=== PATIENT | female | born 1965 | race African-American/Black ===

== ENCOUNTER 2025-01-02 09:18 | Inpatient (IN) | payer MEDICARE, MEDICAID ==
[~2025-01-02] VITALS: Ht 160 cm; Wt 79.2 kg
--- NOTE | 2025-01-02 10:27 | ED.PDOC ---
History of Present Illness(SKN HPI Comments 59 y/o F, presents to the ED for CC of abscess. Patient states, she was bitten by a spider on 12/24/24 and has since, had a non-healing wound to her left inner thigh. Upon examination, patient has a 1cm round wound to her left inner thigh with localized erythema and purulent drainage. Patient denies fever, chills, sweats, nausea, or vomiting. No other symptoms or modifying factors are present at this time. Chief Complaint: Abscess Time Seen by MD: 09:45 History of Present Illness: Nurses Notes, Medications, Allergies Allergies: Coded Allergies: NO KNOWN ALLERGIES (Unverified , 01/02/25) Information Source: Patient Mode of Arrival: Ambulatory Severity: Moderate Timing: Days Duration: Since onset Prehospital treatment: None Location: Other (left thigh) Mechanism: Spider Developed: Generalized erythema Object: None Condition of Object: None Retained Foreign Body: No Immunization Status of Animal: NA Tetanus: Unknown History of: None Associated Signs and Symptoms: Redness, Swelling, Pus Constitutional: denies: chills, diaphoresis, fatigue, fever, malaise, sweats, weakness, others EENTM: denies: blurred vision, double vision, ear bleeding, ear discharge, ear drainage, ear pain, ear ringing, eye pain, eye redness, hearing loss, mouth pain, mouth swelling, nasal discharge, nose bleeding, nose congestion, nose pain, photophobia, tearing, throat pain, throat swelling, voice changes, others Respiratory: denies: cough, hemoptysis, orthopnea, SOB at rest, shortness of breath, SOB with excertion, stridor, wheezing, others Cardiovascular: denies: chest pain, dizzy spells, diaphoresis, Dyspnea on exertion, edema, irregular heart beat, left arm pain, lightheadedness, palpitati ons, PND, syncope, others Gastrointestinal: denies: abdomen distended, abdominal pain, blood streaked bowels, constipated, diarrhea, dysphagia, difficulty swallowing, hematemesis, melena, nausea, poor appetite, poor fluid intake, rectal bleeding, rectal pain, vomiting, others Genitourinary: denies: abnormal vagina bleeding, burning, dyspareunia, dysuria, flank pain, frequency, hematuria, incontinence, pain, , vagina discharge, urgency, others Neurological: denies: dizziness, fainting, headache, left sided numbness, left sided weakness, numbness, paresthesia, pre-existing deficit, right sided numbness, right sided weakness, seizure, speech problems, tingling, tremors, weakness, others Musculoskeletal: denies: back pain, gout, joint pain, joint swelling, muscle pain, muscle stiffness, neck pain, others Integumetry: denies: bruises, change in color, change in hair/nails, dryness, laceration, lesions, lumps, rash, wounds, others Allergic/Immunocompromised: denies: Difficulty Healing, Frequent Infections, Hives, Itching, others Hematologic/Lymphatic: denies: anemia, blood clots, easy bleeding, easy bruisin g, swollen glands, others Physical Exam General Appearance: Moderate Distress HEENT: Normal ENT Inspection, Pharynx Normal, TMs Normal Neck: Full Range of Motion, Non-Tender, Normal, Normal Inspection Respiratory: Chest Non-Tender, Lungs Clear, No Accessory Muscle Use, No Respiratory Distress, Normal Breath Sounds Cardiovascular: No Edema, No JVD, No Murmur, No Gallop, Normal Peripheral Pulses, Regular Rate/Rhythm Breast Exam: Deferred Gastrointestinal: No Organomegaly, Non Tender, No Pulsatile Mass, Normal Bowel Sounds, Soft Genitalia: Deferred Pelvic: Deferred Rectal: Deferred Extremities: No calf tenderness, Normal capillary refill, Normal range of motion, Non-tender, No pedal edema, Swelling (Left thigh) Musculoskeletal : Apperance: Normal Neurologic: Alert, chief architect II-XII nml as Tested, No Motor Deficits, Normal Affect, Normal Mood, No Sensory Deficits Cerebellar Function: NOT DONE Reflexes: NOT DONE Skin: Dry, Normal Color, Warm, Wounds (Redness of left thigh with swelling) Peripheral Pulses: 3+ Radial (R), 3+ Radial (L) Lymphatic: No Adenopathy Was a procedure done? Was a procedure done?: No Differential Diagnosis (INTG) Differential Diagnosis: Cellulitis Differential Diagnosis: Abscess X-Ray, Labs, Meds, VS Vital Signs Date Time Temp Pulse Resp B/P (MAP) Pulse Ox O2 Delivery O2 Flow Rate FiO2 01/02/25 09:57 98.6 73 15 143/87 (105) 98 98.6 01/02/25 09:19 98.8 83 15 145/83 99 98.8 Patient alert pain Has swelling of the left thigh with drainage of the wound. Vitals stable. Answering questions. On examination there is redness around the left upper thigh. Reviewed her previous visit. Was given Zosyn. Was given clindamycin. Explained in the patient. Continue monitoring. Time of 1ST Reevaluation: 10:15 Reevaluation 1ST: Unchanged Patient Education/Counseling: Diagnosis, Treatment Family Education/Counseling: No Family Present SEPSIS Sepsis Screen Date sepsis recognized/suspect: Jan 02, 2025 Time Sepsis recognized/suspect: 920 Recent Procedure: No On Antibiotic Therapy: No Respiratory Rate >20: No Heart Rate >90: No Temp<36 C (96.8 F) or >38.3 C: No SBP <90 or MAP <65 mmHG: No New Acute Mental Status Change: No Is the patient on CPAP, BIPAP,: No Physician Orders Troponin-I Hs (01/02/25 10:31) Complete Blood Count (01/02/25 10:31) Comprehensive Metabolic Panel (01/02/25 10:31) Urinalysis (01/02/25 10:31) Sodium Chloride 0.9% (01/02/25 10:45) Sodium Chloride 0.9% (01/02/25 10:45) Piperacillin-Tazob 3.375gm (Zosyn 3.375g (01/02/25 10:45) Clindamycin 300mg Iv (Cleocin Iv) (01/02/25 10:45) Vital Signs Date Time Temp Pulse Resp B/P (MAP) Pulse Ox O2 Delivery O2 Flow Rate FiO2 01/02/25 09:57 98.6 73 15 143/87 (105) 98 98.6 01/02/25 09:19 98.8 83 15 145/83 99 98.8 Departure 1 Departure Time of Disposition: 11:04 Impression: Primary Impression: Cellulitis Qualified Codes: L03.116 - Cellulitis of left lower limb Disposition: ADMITTED INPATIENT Admit to: Med Surg Condition: Guarded Additional Instructions: Discharge Note: Continue on your medications. Do not drive when taking narcotics. Drink plenty of fluids. Follow up with your primary Dr. Take your prescriptions as ordered. If your condition becomes worse call and follow up with your primary Dr. for instructions or return to the ER if needed. Have the stitches/radha removed in 7-10 days. Keep wound clean and dry. Have a wound check in 2 days. Thank you for visiting [facility]. Critical Care Note Critical Care Time?: No Stability Stability form required: No Heart Score Heart Score: Heart Score Response (Comments) Value History N/A 0 EKG N/A 0 Age N/A 0 Risk Factors N/A 0 Troponin N/A 0 Total 0 I personally scribed for KO KENNEDY MD ([email or web address]) on 01/02/25 at 10:27. Electronically submitted by Sheryl Costello ([employer]). I personally scribed for KO KENNEDY MD ([email or web address]) on 01/02/25 at 10:48. Electronically submitted by Sheryl Costello ([employer]). I personally scribed for KO KENNEDY MD ([email or web address]) on 01/02/25 at 10:50. Electronically submitted by Sheryl Costello ([email or web address]). KO KENNEDY MD Jan 02, 2025 10:27
[2025-01-02 11:41] LABS: Hematocrit 37.7 % (36.0-46.0); Hemoglobin 12.8 g/dL (12.2-16.2); Mean Corpuscular Hemoglobin 31.7 pg (28.0-32.0); Mean Corpuscular Volume 93.5 fL (80.0-100.0); Nucleated Red Blood Cells % 0.1 %
[2025-01-02 11:52] LABS: Alanine Aminotransferase 19 U/L (7-40); Albumin 4.0 g/dL (3.2-4.8); Alkaline Phosphatase 87 U/L (46-116); Anion Gap 4 (5-15); BUN/Creatinine Ratio 16.2 (10.0-20.0); Blood Urea Nitrogen 11 mg/dL (9-23); Calcium 9.4 mg/dL (8.7-10.4); Carbon Dioxide 29 mmol/L (20-31); Potassium 4.1 mmol/L (3.5-5.1); Sodium 141 mmol/L (136-145); Total Protein 6.4 g/dL (5.7-8.2)
[2025-01-02 11:56] LABS: Bilirubin, Total 0.2 mg/dL (0.2-1.0); Chloride 108 mmol/L (98-107); Glucose 139 mg/dL (74-106)
[2025-01-02] MEDS: SODIUM CHLORIDE 0.9% 1,000 ML IV ONE ×2 (12:05→12:36)
[2025-01-02] MEDS: CLINDAMYCIN 300MG IV 50 ML IV ONE (12:06)
[2025-01-02] MEDS: PIPERACILLIN-TAZOB 3.375GM 100 ML IV ONE (12:06)
[2025-01-02] MEDS ORDERED: GABA-339 PO (12:57)
[2025-01-02] MEDS ORDERED: ACETAMINOPHEN 325 MG TAB PO PRN (13:00)
[2025-01-02] MEDS: SODIUM CHLORIDE 0.9% 1,000 ML IV SCH (13:00)
[2025-01-02] MEDS ORDERED: ONDANSETRON HCL 4 MG/2 ML VIAL IV PRN (13:00)
--- NOTE | 2025-01-02 13:08 | DVHHP2 ---
History of Present Illness Reason for Visit: Spider bite History of Present Illness 59-year-old female with a past medical history of chronic pain syndrome and tobacco use presents to the emergency department with concerns of a nonhealing abscess on the left inner thigh, which has attributes to a spider bite. The patient states the symptoms began on 12/24/2024 after a presumed spider bite. She reports that she was hospitalized at [facility] from 12/27/24 - 12/30/24, during which she received inpatient treatment and was discharged on oral antibiotics. Despite this, she states the wound has continued to drain purulent material. On exam, the wound is open and I am really 1 cm in size, which ongoing purulent lisa inage. She denies fever, chills, or systemic symptoms. Past Medical History As stated in HPI Past Surgical History x 5 Family History Reviewed, non-contributory to the management of this case. Past Social History Admits to tobacco use Denies illicit or ETOH abuse Review of Systems Constitutional: Yes: Malaise; No: Fever, Chills, Sweats, Weakness, Other Eyes: No: Pain, Vision change, Conjunctivae inflammation, Eyelid inflammation, Other, Redness ENT: No: Ear pain, Ear discharge, Nose pain, Nose discharge, Nose congestion, Mouth pain, Mouth swelling, Throat pain, Throat swelling, Other Respiratory: No: Cough, Dry, Shortness of breath, SOB with excertion, Wheezing, Hemoptysis, Pleuritic Pain, Sputum, Wheezing, Other Cardiovascular: No: Chest Pain, Palpitations, Orthopnea, Paroxysmal Noc. Dyspnea, Edema, Lt Headedness, Other Gastrointestinal: No: Nausea, Vomiting, Abdominal Pain, Diarrhea, Constipation, Melena, Hematochezia, Other Genitourinary: No Dysuria, No Frequency, No Incontinence, No Hematuria, No Retention, No Other Musculoskeletal: No: other, neck pain, shoulder pain, arm pain, back pain, hand pain, leg pain, foot pain Skin: Other (Left inner thigh open wound) Neurological: No: Weakness, Numbness, Incoordination, Change in speech, Confusion, Seizures, Other Allergies: Coded Allergies: NO KNOWN ALLERGIES (Unverified , 01/02/25) Exam Vital Signs Vital Signs Date Time Temp Pulse Resp B/P (MAP) Pulse Ox O2 Delivery O2 Flow Rate FiO2 01/02/25 12:19 Room Air* 0 21 01/02/25 09:57 98.6 73 15 143/87 (105) 98 98.6 General Appearance: Alert, Oriented X3, Cooperative, mild distress HEENT: Atraumatic, PERRLA, EOMI Respiratory: Clear to auscultation, Normal air movement Cardiovascular: Normal S1, Normal S2 Abdominal: Normal bowel sounds, Soft, No tenderness Extremities: Other (Left inner thigh open wound approximately 1 cm in diameter with purulent drainage. Surrounding erythema is minimal. No fluctuance or tracking noted.) Neuro: Normal speech Labs/Xrays Labs Test 01/02/25 11:01 Range/Units White Blood Count 9.5 4.4-10.8 10^3/uL Red Blood Count 4.04 4.0-5.20 10^6/uL Hemoglobin 12.8 12.2-16.2 g/dL Hematocrit 37.7 36.0-46.0 % Mean Corpuscular Volume 93.5 80.0-100.0 fL Mean Corpuscular Hemoglobin 31.7 28.0-32.0 pg Mean Corpuscular Hemoglobin Concent 33.9 32.0-36.0 g/dL Red Cell Distribution Width 14.9 H 11.8-14.3 % Platelet Count 364 140-450 10^3/uL Mean Platelet Volume 7.5 6.9-10.8 fL Neutrophils (%) (Auto) 73.3 37.0-80.0 % Lymphocytes (%) (Auto) 16.3 10.0-50.0 % Monocytes (%) (Auto) 8.0 0.0-12.0 % Eosinophils (%) (Auto) 1.9 0.0-7.0 % Basophils (%) (Auto) 0.5 0.0-2.0 % Neutrophils # (Auto) 6.9 1.6-8.6 10 ^3/uL Lymphocytes # (Auto) 1.5 0.4-5.4 10 ^3/uL Monocytes # (Auto) 0.8 0-1.3 10 ^3/uL Eosinophils # (Auto) 0.2 0-0.8 10 ^3/uL Basophils # (Auto) 0.1 0-0.2 10 ^3/uL Nucleated Red Blood Cells 0.1 % Sodium Level 141 136-145 mmol/L Potassium Level 4.1 3.5-5.1 mmol/L Chloride Level 108 H 98-107 mmol/L Carbon Dioxide Level 29 20-31 mmol/L Anion Gap 4 L 5-15 Blood Urea Nitrogen 11 9-23 mg/dL Creatinine 0.68 0.550-1.02 mg/dL Glomerular Filtration Rate Calc 100 >90 mL/min BUN/Creatinine Ratio 16.2 10.0-20.0 Serum Glucose 139 H 74-106 mg/dL Calcium Level 9.4 8.7-10.4 mg/dL Total Bilirubin 0.2 0.2-1.0 mg/dL Aspartate Amino Transferase (AST) 19 13-40 U/L Alanine Aminotransferase (ALT) 19 7-40 U/L Alkaline Phosphatase 87 46-116 U/L Troponin I High Sensitivity < 3 L </=34 ng/L Total Protein 6.4 5.7-8.2 g/dL Albumin 4.0 3.2-4.8 g/dL SEPSIS Sepsis Screen Date sepsis recognized/suspect: Jan 02, 2025 Time Sepsis recognized/suspect: 920 Recent Procedure: No On Antibiotic Therapy: No Respiratory Rate >20: No Heart Rate >90: No Temp<36 C (96.8 F) or >38.3 C: No SBP <90 or MAP <65 mmHG: No New Acute Mental Status Change: No Is the patient on CPAP, BIPAP,: No Physician Orders Urinalysis (01/02/25 10:31) Sodium Chloride 0.9% (01/02/25 10:45) Clindamycin Ivpb Cleocin (01/02/25 14:00) Zosyn Extended Infusion (01/02/25 18:00) Admit (01/02/25 12:53) Code Status (01/02/25 12:53) 0.9% Ns 1000 Ml (01/02/25 13:00) Hydrocodone-Acet 5/325mg Tab (Lomira 5/32 (01/02/25 13:00) Ondansetron Hcl (Zofran) (01/02/25 13:00) Enoxaparin Sodium (Lovenox) (01/03/25 10:00) Fall Risk Precautions In Place QSHIFT (01/02/25 12:53) Complete Blood Count (01/03/25 04:00) Comprehensive Metabolic Panel (01/03/25 04:00) Cardiac Diet-2gna,Lofat,Lochol (01/02/25 Lunch) Condition: Fair (01/02/25 12:53) Acetaminophen Tablet (Tylenol Tablet) (01/02/25 13:00) Morphine Sulfate Injection (01/02/25 13:00) Vital Signs Date Time Temp Pulse Resp B/P (MAP) Pulse Ox O2 Delivery O2 Flow Rate FiO2 01/02/25 12:19 Room Air* 0 21 01/02/25 09:57 98.6 73 15 143/87 (105) 98 98.6 01/02/25 09:19 98.8 83 15 145/83 99 98.8 Laboratory Tests Test 01/02/25 11:01 White Blood Count 9.5 10^3/uL (4.4-10.8) Medications Medications Dose Ordered Sig/Ej Route Start Time Stop Time Status Last Admin Dose Admin Clindamycin Phosphate 50 ml @ 50 mls/hr ONCE ONCE IV 01/02/25 10:45 01/02/25 11:44 DC 01/02/25 12:06 50 MLS/HR Piperacillin Sod/ Tazobactam Sod 100 ml @ 100 mls/hr ONCE ONCE IV 01/02/25 10:45 01/02/25 11:44 DC 01/02/25 12:06 100 MLS/HR Sodium Chloride 1,000 ml @ 1,000 mls/hr Q1H ONCE IV 01/02/25 10:45 01/02/25 11:44 DC 01/02/25 12:05 1,000 MLS/HR Assessment/Plan Assessment/Plan # left lower extremity cellulitis * Empiric antibiotic clindamycin and Zosyn * Wound culture * Wound Care consult # tobacco use * Nicotine patch * Smoking cessation counseled # chronic pain syndrome * Pain control * Gabapentin as needed DVT prophylaxis Medical plan discussed with patient Plan discussed with: Patient My Orders Orders - ANTONIO VEE ANALYTICAL LABORATORY TECHNICIAN Procedure Category Date Status Time Clindamycin Ivpb PHA 01/02/25 Transmitted Cleocin 14:00 Zosyn Extended PHA 01/02/25 Transmitted Infusion 18:00 Admit ADMIT 01/02/25 Transmitted 12:53 Code Status CODE 01/02/25 Transmitted 12:53 0.9% Ns 1000 Ml PHA 01/02/25 Transmitted 13:00 Hydrocodone-Acet PHA 01/02/25 Transmitted 5/325mg Tab (Lomira 13:00 Ondansetron Hcl PHA 01/02/25 Transmitted (Zofran) 13:00 Enoxaparin Sodium PHA 01/03/25 Transmitted (Lovenox) 10:00 Fall Risk Precautions TONIA 01/02/[address] 12:53 Complete Blood Count LAB 01/03/25 Verified 04:00 Comprehensive LAB 01/03/25 Verified Metabolic Panel 04:00 Cardiac DIET 01/02/25 Transmitted Diet-2gna,Lofat,Lochol Lunch Condition: Fair TONIA 01/02/25 In Process 12:53 Acetaminophen Tablet PHA 01/02/25 Transmitted (Tylenol Tablet) 13:00 Morphine Sulfate PHA 01/02/25 Transmitted Injection 13:00 Date of Service: Jan 02, 2025 Billing Provider: ANTONIO VEE Common Visit Codes: [id number] INP/OBS CARE (HIGH) Consultation Codes: [id number] CONSULT <45MIN ANTONIO VEE Jan 02, 2025 13:08
[2025-01-02] MEDS: PIPERACILLIN-TAZOB 3.375GM 100 ML IV SCH (15:09)
[2025-01-02] MEDS: CLINDAMYCIN 300MG IV 50 ML IV SCH (15:21)
[2025-01-02 23:22] VITALS: PULSE 62; RESP 19
[2025-01-02] MEDS: MORPHINE SULFATE INJ 2 MG/ml SYRG IV PRN (23:59)
[2025-01-03] VITALS (7 sets, daily range): BP systolic 121–145; BP diastolic 81–96; PULSE 59–69; RESP 16–19; TEMP 96.8–98.8; O2SAT 95–100
[2025-01-03 07:34] LABS: Hematocrit 35.5 % (36.0-46.0); Hemoglobin 12.1 g/dL (12.2-16.2); Mean Corpuscular Hemoglobin 31.7 pg (28.0-32.0); Mean Corpuscular Volume 93.2 fL (80.0-100.0); Nucleated Red Blood Cells % 0.0 %
[2025-01-03 08:06] LABS: Alanine Aminotransferase 17 U/L (7-40); Albumin 3.4 g/dL (3.2-4.8); Alkaline Phosphatase 73 U/L (46-116); Anion Gap 8 (5-15); BUN/Creatinine Ratio 11.0 (10.0-20.0); Blood Urea Nitrogen 8 mg/dL (9-23); Calcium 9.2 mg/dL (8.7-10.4); Carbon Dioxide 29 mmol/L (20-31); Chloride 108 mmol/L (98-107); Glucose 94 mg/dL (74-106); Potassium 4.2 mmol/L (3.5-5.1); Sodium 145 mmol/L (136-145); Total Protein 5.7 g/dL (5.7-8.2)
[2025-01-03 08:43] LABS: Bilirubin, Total 0.2 mg/dL (0.2-1.0)
--- NOTE | 2025-01-03 09:38 | DVHPNRES ---
Progress Note Date Seen: Jan 03, 2025 Resident Creating Document: MARIBEL STANLEY RESIDENT Medical Necessity Reason Pt with a Central, PICC or Fol: No Subjective Review of Systems This is a 59-year-old female with a past medical history of chronic back pain, osteoarthritis and tobacco, marijuana use presents to the emergency department with concerns of a non-healing wound on the left inner thigh, which started after spider bite approximately 1.5 cm, mild purulent discharge, swelling, local raise of temperature tender on deep palpation. The patient states the symptoms began on 12/24/2024 after a presumed spider bite from her garage. She reports that she was hospitalized at [facility] from 12/27/24 - 12/30/24, during which she received IV antibiotic and was discharged on oral antibiotics. Despite this, she states the wound has continued to drain purulent material. She denies fever, chills, chest pain, SOB, dysuria, abdominal pain or systemic symptoms. Past Medical History: chronic back pain, osteoarthritis and tobacco, marijuana use Past Surgical History: x 5 Family History: non-contributory Past Social History Admits to tobacco, marijuana use . Denies ETOH abuse PCP: Health department Home medication: Gabapentin 600 mg, diclofenac gel, oxycodone-acetaminophen 10/325 mg. Patient seen and evaluated in bedside. Patient denies any acute symptoms like fever, SOB, abdominal pain. Ultrasound done showing no abscess. Patient currently on IV antibiotic. Surgery consult defer, we will monitor local infection. Objective vital signs Vital Sign Date Time Temp Pulse Resp B/P (MAP) Pulse Ox O2 Delivery O2 Flow Rate FiO2 01/03/25 09:00 98.8 64 19 122/84 (97) 98 98.8 01/02/25 23:22 Room Air* 0 21 Total Intake and Output 01/02/25 01/02/25 01/03/25 15:00 23:00 07:00 Intake Total 350 ml 1400 ml Balance 350 ml 1400 ml medications Current Medications Medications Dose Ordered Sig/Ej Route Start Time Stop Time Status Last Admin Dose Admin Clindamycin Phosphate 50 ml @ 50 mls/hr Q8HR IV 01/02/25 14:00 01/03/25 05:04 50 MLS/HR Piperacillin Sod/ Tazobactam Sod 100 ml @ 25 mls/hr Q8HR IV 01/02/25 15:09 01/03/25 06:18 25 MLS/HR Sodium Chloride 1,000 ml @ 60 mls/hr [id number] IV 01/02/25 13:00 01/02/25 21:47 60 MLS/HR Acetaminophen/ Hydrocodone Bitart 1 tab Q4HP PRN PO 01/02/25 13:00 Ondansetron HCl 4 mg Q4HP PRN IV 01/02/25 13:00 Enoxaparin Sodium 40 mg DAILY SC 01/03/25 10:00 Acetaminophen 650 mg Q6HP PRN PO 01/02/25 13:00 Morphine Sulfate 2 mg Q4HPRN PRN IV 01/02/25 13:00 01/02/25 23:59 2 MG Nicotine 1 patch DAILY TD 01/03/25 10:00 Examination Nursing staff as a paper novelty maker was present Examination: GENERAL:Normal, HEENT:Normal, NECK:Normal, LUNGS:Normal, CVS:Normal, ABDOMEN:Normal, MSK:Abnormal (The back of left thigh with ulcer with pus; redness around the ulcer with warmth and tenderness), SKIN:Abnormal (As above), NEURO:Normal laboratory and microbiology Laboratory Tests 01/03/25 06:08 Test 01/03/25 06:08 Range/Units Serum Glucose 94 74-106 mg/dL Labs and/or images reviewed: Labs reviewed by me, Image(s) reviewed by me Problem List/Assessment/Plan Problem List/Assessment/Plan Left thigh cellulitis surrounding ulcer caused by possible spider bite Ultrasound soft tissue left thigh: Moderate diffuse subcutaneous edema with sweet in soft tissue. NSS 60 cc/hour Acetaminophen 650 mg p.o. q.6 p.r.n. Clindamycin IV antibiotic Cammal as needed for pain Culture sent Optimize antibiotic when culture sensitivity back Daily monitors local inflammation To sent wound Gram stain and culture Wound care consult Normocytic normochromic anemia Hemoglobin 12.1, HCT 35.5 MCV 93.2 ,MCHC 34.0 RDW 14.5 No active signs/symptoms of bleeding Chronic back pain No history of recent trauma, MVA or fall Continue pain management as indicated Osteoarthritis Continue pain management as indicated Marijuana/Tobacco use disorder Counseled for 22 minutes for marijuana and tobacco use cessation; including exclusively 16 minutes for tobacco use cessation Nicotine patch started DVT prophylaxis: Lovenox 40 mg sc daily GI prophylaxis: Not indicated at this time. Goals of care discussed with the patient for 20 minutes; full code Case discussed with Dr. Joel. Plan discussed with: Patient, Other (Nurse) Addendum Addendum Addendum I was physically present for the bhagat portions of the service provided to patient by THE RESIDENT. I have reviewed the documentation, discussed the case with resident and agree with the resident's documentation except as noted. Also the patient's clinical case was discussed with the patient's nurse. This medical document was created using an electronic medical record system with computerized dictation system. Although this document has been carefully reviewed, there might still be some phonetic and typographical errors. These areas are purely typographical due to imperfections of the software programs, and do not reflect any compromise in the patient's medical care. Late signature. Date of Service: Jan 03, 2025 Billing Provider: LULÚ JOEL MD Common Visit Codes: [id number] INP/OBS CARE(HIGH) Secondary Visit Codes: [id number] CHNG SMOKING >10MIN (Counseled for 22 minutes for marijuana and tobacco use cessation; including exclusively 16 minutes for tobacco use cessation), 20500-SOSWMORA CARE PLAN 30 MINUTES (20 minutes) MARIBEL STANLEY RESIDENT Jan 03, 2025 09:38 LULÚ JOEL MD Jan 04, 2025 12:52
[2025-01-03] MEDS: ENOXAPARIN SOD 40 MG/0.4 ML SYRINGE SC SCH (09:39)
[2025-01-03] MEDS: NICOTINE 7MG/24HR TOPICAL PATCH TD SCH (10:00)
[2025-01-03] MEDS: HYDROcodone-ACET 5/325MG TAB PO PRN (12:07)
--- NOTE | 2025-01-03 12:12 | DVH ---
EXAM: US LEFT LOWER EXTREMITY ULTRASOUN DATE OF SERVICE: 01/03/2025 11:52 AM ORDERING PHYSICIAN: ANTONIO VEE REASON FOR EXAM: patient had spider bite, rule out abcess TECHNIQUE: Images were acquired through the area of concern in the medial left upper thigh with a hi gh-frequency transducer in sagittal and transverse planes. Video clips were included. Color doppler e valuation of the area of concern was also performed. COMPARISON: None FINDINGS: In the area of concern, there is moderate diffuse subcutaneous edema. There is trace free fluid in the subcutaneous tissues. There is no organized fluid collection. No solid mass is identifi ed. IMPRESSION: Moderate diffuse subcutaneous edema with trace free fluid in the soft tissues. No organized abscess i s identified.
[2025-01-03] MEDS ORDERED: TETANUS-DIPTH-ACEL PERTUSSIS 0.5ML SYR Tdap IM ONE (13:15)
[2025-01-03] MEDS: GABAPENTIN 300 MG CAP PO ONE (14:07)
[2025-01-03] MEDS: NICOTINE 21MG/24 HR TOPICAL PATCH TD ONE (14:08)
[2025-01-03] MEDS: GABAPENTIN 300 MG CAP PO SCH (21:13)
[2025-01-04 01:00] VITALS: BP 132/92; PULSE 63; RESP 18; TEMP 98.2; O2SAT 98
[2025-01-04 05:00] VITALS: BP 119/81; PULSE 70; RESP 18; TEMP 98.3; O2SAT 100
[2025-01-04 05:40] LABS: Hematocrit 39.1 % (36.0-46.0); Hemoglobin 13.4 g/dL (12.2-16.2); Mean Corpuscular Hemoglobin 31.7 pg (28.0-32.0); Mean Corpuscular Volume 92.5 fL (80.0-100.0); Nucleated Red Blood Cells % 0.1 %
[2025-01-04 05:45] LABS: Calcium 9.2 mg/dL (8.7-10.4); Potassium 3.7 mmol/L (3.5-5.1); Sodium 144 mmol/L (136-145)
[2025-01-04 05:46] LABS: Anion Gap 7 (5-15); Carbon Dioxide 28 mmol/L (20-31)
[2025-01-04 05:49] LABS: Chloride 109 mmol/L (98-107)
[2025-01-04 05:51] LABS: BUN/Creatinine Ratio 10.3 (10.0-20.0); Glucose 87 mg/dL (74-106)
[2025-01-04 05:57] LABS: Blood Urea Nitrogen 7 mg/dL (9-23)
[2025-01-04 09:00] VITALS: BP 132/90; PULSE 71; RESP 18; TEMP 98.6; O2SAT 98
[2025-01-04 13:00] VITALS: BP 143/92; PULSE 71; RESP 18; TEMP 98.1; O2SAT 98
--- NOTE | 2025-01-04 13:39 | DVHPNRES ---
Progress Note Date Seen: Jan 04, 2025 Resident Creating Document: MARIBEL STANLEY RESIDENT Medical Necessity Reason Pt with a Central, PICC or Fol: No Subjective Review of Systems This is a 59-year-old female with a past medical history of chronic back pain, osteoarthritis and tobacco, marijuana use presents to the emergency department with concerns of a non-healing wound on the left inner thigh, which started after spider bite approximately 1.5 cm, mild purulent discharge, swelling, local raise of temperature tender on deep palpation. The patient states the symptoms began on 12/24/2024 after a presumed spider bite from her garage. She reports that she was hospitalized at [facility] from 12/27/24 - 12/30/24, during which she received IV antibiotic and was discharged on oral antibiotics. Despite this, she states the wound has continued to drain purulent material. She denies fever, chills, chest pain, SOB, dysuria, abdominal pain or systemic symptoms. Past Medical History: chronic back pain, osteoarthritis and tobacco, marijuana use Past Surgical History: x 5 Family History: non-contributory Past Social History Admits to tobacco, marijuana use . Denies ETOH abuse PCP: Health department Home medication: Gabapentin 600 mg, diclofenac gel, oxycodone-acetaminophen 10/325 mg. Patient seen and evaluated in bedside. Patient denies any acute symptoms like fever, SOB, abdominal pain. Surgery consulted due to CT left leg shows moderate collection of fluid. Objective vital signs Vital Sign Date Time Temp Pulse Resp B/P (MAP) Pulse Ox O2 Delivery O2 Flow Rate FiO2 01/04/25 09:00 98.6 71 18 132/90 (104) 98 98.6 01/04/25 07:55 Room Air* 0 N/A Nasal Cannula* Total Intake and Output 01/03/25 01/03/25 01/04/25 15:00 23:00 07:00 Intake Total 240 ml 180 ml Balance 240 ml 180 ml medications Current Medications Medications Dose Ordered Sig/Ej Route Start Time Stop Time Status Last Admin Dose Admin Clindamycin Phosphate 50 ml @ 50 mls/hr Q8HR IV 01/02/25 14:00 01/04/25 13:22 50 MLS/HR Sodium Chloride 1,000 ml @ 60 mls/hr [id number] IV 01/02/25 13:00 01/03/25 22:20 60 MLS/HR Acetaminophen/ Hydrocodone Bitart 1 tab Q4HP PRN PO 01/02/25 13:00 01/04/25 09:45 1 TAB Ondansetron HCl 4 mg Q4HP PRN IV 01/02/25 13:00 Enoxaparin Sodium 40 mg DAILY SC 01/03/25 10:00 01/04/25 09:44 40 MG Acetaminophen 650 mg Q6HP PRN PO 01/02/25 13:00 Nicotine 1 patch DAILY TD 01/03/25 10:00 01/04/25 09:44 1 PATCH Gabapentin 600 mg BID PO 01/03/25 22:00 01/04/25 09:43 600 MG Examination General Appearance: Not in acute distress HEENT: Normal ENT Inspection, Pharynx Normal, TMs Normal Neck: Full Range of Motion, Non-Tender, Normal, Normal Inspection Respiratory: Chest Non-Tender, Lungs Clear, No Accessory Muscle Use, No Respiratory Distress, Normal Breath Sounds Cardiovascular: No Edema, No JVD, No Murmur, No Gallop, Normal Peripheral Pulses, Regular Rate/Rhythm Gastrointestinal: No Organomegaly, Non Tender, No Pulsatile Mass, Normal Bowel Sounds, Soft Extremities: No calf tenderness, Normal capillary refill, tender mild discharge and swelling Swelling (Left inner thigh) Neurologic: Alert, wastewater project manager II-XII nml as Tested, No Motor Deficits, Normal Affect, Normal Mood, No Sensory Deficits Skin: Dry, Normal Color, Warm, Wounds (Redness of left thigh with swelling) laboratory and microbiology Laboratory Tests 01/04/25 04:45 Test 01/04/25 04:45 Range/Units Serum Glucose 87 74-106 mg/dL Microbiology Date/Time Source Procedure Growth Status 01/03/25 14:08 Leg Left Gram Stain - Final Resulted 01/03/25 14:08 Leg Left Wound Culture - Preliminary Resulted Problem List/Assessment/Plan Problem List/Assessment/Plan Left thigh cellulitis surrounding ulcer caused by possible spider bite Ultrasound soft tissue left thigh: Moderate diffuse subcutaneous edema with sweet in soft tissue. NSS 60 cc/hour Acetaminophen 650 mg p.o. q.6 p.r.n. Clindamycin IV antibiotic [place] as needed for pain Wound culture g stain shows Gram-positive cocci in pairs Nasal MRSA negative on 01/02/2025 Culture sensitivity pending Normocytic normochromic anemia Hemoglobin 12.1, HCT 35.5 MCV 93.2 ,MCHC 34.0 RDW 14.5 No active signs/symptoms of bleeding Chronic back pain No history of recent trauma, MVA or fall Continue pain management as indicated Osteoarthritis Continue pain management as indicated Marijuana/Tobacco use disorder Counseled for tobacco and marijuana use Nicotine patch started DVT prophylaxis: Lovenox 40 mg sc daily GI prophylaxis: Not indicated at this time. Goals of care discussed with the patient for 19 minutes; full code. Case discussed with Dr. Mcmullen Plan discussed with: Patient, Other (Nurse) Dietary Evaluation Review Recommendations by RD: Dietary education by RD Comments: 1) Initiate MVI @ 1 tb qd 2) Encourage optimal PO intake 3) Refer to outpatient RD for weight management 4) Continue to monitor I&O, labs, and skin integrity Expected Outcomes/Goals: 1) appetite and labs to improve 2) wound to improve 2) f/u in 3-5 days Date of Service: Jan 04, 2025 Billing Provider: ANGY ANDERSEN MD Common Visit Codes: [id number] INP/OBS CARE(HIGH) MARIBEL STANLEY RESIDENT Jan 04, 2025 13:39 LUNA BALDWIN RESIDENT Jan 07, 2025 01:53 ANGY ANDERSEN MD Jan 07, 2025 22:26
[2025-01-04 16:41] VITALS: BP 133/98; PULSE 67; RESP 18; TEMP 98.4; O2SAT 100
[2025-01-04 21:00] VITALS: BP 132/90; PULSE 74; RESP 17; TEMP 98.2; O2SAT 97
[2025-01-05] VITALS (7 sets, daily range): BP systolic 100–146; BP diastolic 64–97; PULSE 70–80; RESP 16–18; TEMP 98–98.4; O2SAT 92–98
[2025-01-05 06:29] LABS: Anion Gap 8 (5-15); Carbon Dioxide 27 mmol/L (20-31); Potassium 4.1 mmol/L (3.5-5.1); Sodium 143 mmol/L (136-145)
[2025-01-05 06:30] LABS: Calcium 9.0 mg/dL (8.7-10.4)
[2025-01-05 06:32] LABS: Hematocrit 38.6 % (36.0-46.0); Hemoglobin 13.2 g/dL (12.2-16.2); Mean Corpuscular Hemoglobin 31.7 pg (28.0-32.0); Mean Corpuscular Volume 92.6 fL (80.0-100.0); Nucleated Red Blood Cells % 0.0 %
[2025-01-05 06:35] LABS: BUN/Creatinine Ratio 14.5 (10.0-20.0); Blood Urea Nitrogen 16 mg/dL (9-23); Glucose 91 mg/dL (74-106)
[2025-01-05 06:53] LABS: Chloride 108 mmol/L (98-107)
[2025-01-05] MEDS: IOHEXOL 300 MG/ML 100ML BOTTLE IJ ONE (12:30)
--- NOTE | 2025-01-05 18:22 | DVH ---
INDICATION: r/o abscess COMPARISON: US LEFT LOWER EXTREMITY ULTRASOUN on DOS: 01/03/25 TECHNIQUE: CT of the right was performed without contrast. Volume transverse images were obtained and reconstructed in multiple planes using bone and soft tissue algorithms. CONTRAST: None Radiation Dose Information: CT Dose: CTDI volume is 14.41 mGy. Dose-length product is 841.29 mGy*cm Omnipaque 300: 100 mL FINDINGS: The alignment is normal. The joint spaces are normal. There is no fracture, dislocation, or focal osseous lesions. The soft tissues stranding suggesting edema possible inflammatory changes medial aspect proximal thig h on the left. Measures 9.1 cm in transverse dimension, 16 mm in thickness. Tissue density of the sargent bcutaneous collection is 16 0.29 hounsfield units. May represent seroma or abscess. There are no ga s bubbles in the collection. Area involved proximal left thigh extends from 9:00 to 6:00. There is a 2.6 x 3.6 cm subcutaneous collection in the medial soft tissues of the proximal left thigh extending proximally 1.521.7 cm from the left inferior gluteal fold. In the posterior proximal thigh is a 6.1 x 5 cm collection of fluid in the subcutaneous tissues which may represent a focal abscess in the subcutaneous tissues with density of 6.45 Hounsfield units. IMPRESSION: 1. Inflammatory changes in the subcutaneous tissues proximal left thigh proximally 1-2 cm distal to t he inferior gluteal fold in the left. 2. Inflammatory changes extend from the 6:00 a.m. of the 9 o'clock position of the left thigh. 3. Largest collection measures 6.1 x 5 cm. 4. Series 604 images 83-[address] scans at this medical facility are performed using dose modulation techniques as appropriat e to a performed exam including the following: Automated exposure control was utilized; adjustment of the MA and/or KV according to patient size; and use of iterative reconstruction technique.
--- NOTE | 2025-01-05 21:35 | DVHPNRES ---
Progress Note Date Seen: Jan 05, 2025 Resident Creating Document: MARIBEL STANLEY RESIDENT Medical Necessity Reason Pt with a Central, PICC or Fol: No Subjective Review of Systems This is a 59-year-old female with a past medical history of chronic back pain, osteoarthritis and tobacco, marijuana use presents to the emergency department with concerns of a non-healing wound on the left inner thigh, which started after spider bite approximately 1.5 cm, mild purulent discharge, swelling, local raise of temperature tender on deep palpation. The patient states the symptoms began on 12/24/2024 after a presumed spider bite from her garage. She reports that she was hospitalized at [facility] from 12/27/24 - 12/30/24, during which she received IV antibiotic and was discharged on oral antibiotics. Despite this, she states the wound has continued to drain purulent material. She denies fever, chills, chest pain, SOB, dysuria, abdominal pain or systemic symptoms. Past Medical History: chronic back pain, osteoarthritis and tobacco, marijuana use Past Surgical History: x 5 Family History: non-contributory Past Social History Admits to tobacco, marijuana use . Denies ETOH abuse PCP: Health department Home medication: Gabapentin 600 mg, diclofenac gel, oxycodone-acetaminophen 10/325 mg. Patient seen and evaluated in bedside. Patient denies any acute symptoms like fever, SOB, abdominal pain. Surgery consulted due to CT left leg shows moderate collection of fluid. Objective vital signs Vital Sign Date Time Temp Pulse Resp B/P (MAP) Pulse Ox O2 Delivery O2 Flow Rate FiO2 01/05/25 16:48 98.1 80 17 119/84 (96) 97 98.1 01/05/25 08:00 Room Air* 0 N/A Nasal Cannula* Total Intake and Output 01/04/25 01/04/25 01/05/25 15:00 23:00 07:00 Intake Total 50 ml 1098 ml 1270 ml Balance 50 ml 1098 ml 1270 ml medications Current Medications Medications Dose Ordered Sig/Ej Route Start Time Stop Time Status Last Admin Dose Admin Clindamycin Phosphate 50 ml @ 50 mls/hr Q8HR IV 01/02/25 14:00 01/05/25 14:51 50 MLS/HR Sodium Chloride 1,000 ml @ 60 mls/hr [id number] IV 01/02/25 13:00 01/05/25 07:40 60 MLS/HR Acetaminophen/ Hydrocodone Bitart 1 tab Q4HP PRN PO 01/02/25 13:00 01/05/25 20:31 1 TAB Ondansetron HCl 4 mg Q4HP PRN IV 01/02/25 13:00 Enoxaparin Sodium 40 mg DAILY SC 01/03/25 10:00 01/05/25 10:32 40 MG Acetaminophen 650 mg Q6HP PRN PO 01/02/25 13:00 Nicotine 1 patch DAILY TD 01/03/25 10:00 01/05/25 10:34 1 PATCH Gabapentin 600 mg BID PO 01/03/25 22:00 01/05/25 10:32 600 MG Loratadine 10 mg DAILY PO 01/06/25 10:00 Examination General Appearance: Not in acute distress HEENT: Normal ENT Inspection, Pharynx Normal, TMs Normal Neck: Full Range of Motion, Non-Tender, Normal, Normal Inspection Respiratory: Chest Non-Tender, Lungs Clear, No Accessory Muscle Use, No Respiratory Distress, Normal Breath Sounds Cardiovascular: No Edema, No JVD, No Murmur, No Gallop, Normal Peripheral Pulses, Regular Rate/Rhythm Gastrointestinal: No Organomegaly, Non Tender, No Pulsatile Mass, Normal Bowel Sounds, Soft Extremities: No calf tenderness, Normal capillary refill, tender and indurated area medial aspect of left thigh Neurologic: Alert, coagulant dipper II-XII nml as Tested, No Motor Deficits, Normal Affect, Normal Mood, No Sensory Deficits Skin: Dry, Normal Color, Warm, Wounds (Redness of left thigh with swelling) laboratory and microbiology Laboratory Tests 01/05/25 05:00 Test 01/05/25 05:00 Range/Units Serum Glucose 91 74-106 mg/dL Microbiology Date/Time Source Procedure Growth Status 01/03/25 14:08 Leg Left Gram Stain - Final Resulted 01/03/25 14:08 Leg Left Wound Culture - Preliminary Resulted Problem List/Assessment/Plan Problem List/Assessment/Plan Left thigh cellulitis surrounding ulcer caused by possible spider bite Ultrasound soft tissue left thigh: Moderate diffuse subcutaneous edema with sweet in soft tissue. CT left thigh with contrast shows inflammatory changes in the subcutaneous tissue proximal left thigh and largest collection measures 6.1cm X 5 cm. NSS 60 cc/hour Acetaminophen 650 mg p.o. q.6 p.r.n. Clindamycin IV antibiotic [place]ane as needed for pain Culture sentk Daily monitors local inflammation Surgery consult due to CT left thigh shows collection of fluid possible abscess. Normocytic normochromic anemia Hemoglobin 12.1, HCT 35.5 MCV 93.2 ,MCHC 34.0 RDW 14.5 No active signs/symptoms of bleeding Chronic back pain No history of recent trauma, MVA or fall Continue pain management as indicated Osteoarthritis Continue pain management as indicated Marijuana/Tobacco use disorder Counseled for 22 minutes for marijuana and tobacco use cessation; including exclusively 16 minutes for tobacco use cessation Nicotine patch started DVT prophylaxis: Lovenox 40 mg sc daily GI prophylaxis: Not indicated at this time. Goals of care discussed with the patient for 20 minutes; full code Case discussed with Dr. Andersen. Plan discussed with: Patient, Other (Nurse) My Orders My Orders Orders - MARIBEL STANLEY RESIDENT Procedure Category Date Status Time Loratadine Tablet PHA 01/06/25 In Process (Claritin Tablet) 10:00 Lt Lower Extremity W CT 01/05/25 Resulted Contras 11:25 * Surgical Consult CONS 01/05/25 Transmitted Dietary Evaluation Review Recommendations by RD: Dietary education by RD Comments: 1) Initiate MVI @ 1 tb qd 2) Encourage optimal PO intake 3) Refer to outpatient RD for weight management 4) Continue to monitor I&O, labs, and skin integrity Expected Outcomes/Goals: 1) appetite and labs to improve 2) wound to improve 2) f/u in 3-5 days Date of Service: Jan 05, 2025 Billing Provider: ANGY ANDERSEN MD Common Visit Codes: [id number] INP/OBS CARE(HIGH) MARIBEL STANLEY RESIDENT Jan 05, 2025 21:35 LUNA BALDWIN RESIDENT Jan 07, 2025 01:54 ANGY ANDERSEN MD Jan 14, 2025 21:29
[2025-01-06] VITALS (7 sets, daily range): BP systolic 94–152; BP diastolic 72–91; PULSE 64–77; RESP 16–18; TEMP 97.6–98.1; O2SAT 94–100
[2025-01-06 06:40] LABS: Hematocrit 40.1 % (36.0-46.0); Hemoglobin 13.4 g/dL (12.2-16.2); Mean Corpuscular Hemoglobin 30.9 pg (28.0-32.0); Mean Corpuscular Volume 92.8 fL (80.0-100.0); Nucleated Red Blood Cells % 0.1 %
[2025-01-06 06:53] LABS: Anion Gap 7 (5-15); Carbon Dioxide 29 mmol/L (20-31); Potassium 4.0 mmol/L (3.5-5.1); Sodium 143 mmol/L (136-145)
[2025-01-06 06:55] LABS: Calcium 9.2 mg/dL (8.7-10.4)
[2025-01-06 06:58] LABS: Chloride 107 mmol/L (98-107)
[2025-01-06 06:59] LABS: BUN/Creatinine Ratio 21.1 (10.0-20.0); Blood Urea Nitrogen 15 mg/dL (9-23); Glucose 90 mg/dL (74-106)
[2025-01-06] MEDS: LORATADINE 10 MG TAB PO SCH (09:45)
[2025-01-06] MEDS: DOXYCYCLINE 100 MG TAB/CAP PO ONE (14:04)
--- NOTE | 2025-01-06 16:36 | DVHINCON2 ---
Date of service: Jan 06, 2025 Allergies: Coded Allergies: NO KNOWN ALLERGIES (Unverified , 01/02/25) Home Meds Reported Medications Gabapentin (Gabapentin) 600 Mg Tab, 1 TAB PO QIDP PRN 01/02/25 Current Medications Current Medications Medications (Trade) Dose Ordered Sig/Ej Route PRN Reason Start Time Stop Time Status Last Admin Loratadine (Claritin Tablet) 10 mg DAILY PO 01/06/25 10:00 01/06/25 09:45 Doxycycline Monohydrate (Vibramycin Tablet) 100 mg Q12HR PO 01/06/25 22:00 Vital Signs Vital Signs Date Time Temp Pulse Resp B/P (MAP) Pulse Ox O2 Delivery O2 Flow Rate FiO2 01/06/25 13:22 98.1 70 17 152/89 (110) 94 98.1 01/06/25 08:00 Room Air* 0 N/A Nasal Cannula* Labs/Diagnostic Data Labs Test 01/06/25 06:00 01/04/25 04:45 01/03/25 06:08 01/02/25 11:01 Range/Units White Blood Count 6.9 4.4-10.8 10^3/uL Red Blood Count 4.32 4.0-5.20 10^6/uL Hemoglobin 13.4 12.2-16.2 g/dL Hematocrit 40.1 36.0-46.0 % Mean Corpuscular Volume 92.8 80.0-100.0 fL Mean Corpuscular Hemoglobin 30.9 28.0-32.0 pg Mean Corpuscular Hemoglobin Concent 33.3 32.0-36.0 g/dL Red Cell Distribution Width 14.7 H 11.8-14.3 % Platelet Count 359 140-450 10^3/uL Mean Platelet Volume 7.2 6.9-10.8 fL Neutrophils (%) (Auto) 70.9 37.0-80.0 % Lymphocytes (%) (Auto) 18.1 10.0-50.0 % Monocytes (%) (Auto) 9.3 0.0-12.0 % Eosinophils (%) (Auto) 1.5 0.0-7.0 % Basophils (%) (Auto) 0.2 0.0-2.0 % Neutrophils # (Auto) 4.9 1.6-8.6 10 ^3/uL Lymphocytes # (Auto) 1.2 0.4-5.4 10 ^3/uL Monocytes # (Auto) 0.6 0-1.3 10 ^3/uL Eosinophils # (Auto) 0.1 0-0.8 10 ^3/uL Basophils # (Auto) 0 0-0.2 10 ^3/uL Nucleated Red Blood Cells 0.1 % Sodium Level 143 136-145 mmol/L Potassium Level 4.0 3.5-5.1 mmol/L Chloride Level 107 98-107 mmol/L Carbon Dioxide Level 29 20-31 mmol/L Anion Gap 7 5-15 Blood Urea Nitrogen 15 9-23 mg/dL Creatinine 0.71 # 0.550-1.02 mg/dL Glomerular Filtration Rate Calc 97 >90 mL/min BUN/Creatinine Ratio 21.1 H 10.0-20.0 Serum Glucose 90 74-106 mg/dL Calcium Level 9.2 8.7-10.4 mg/dL Hemoglobin A1c 5.7 <5.7 % A1C Total Bilirubin 0.2 0.2-1.0 mg/dL Aspartate Amino Transferase (AST) 19 13-40 U/L Alanine Aminotransferase (ALT) 17 7-40 U/L Alkaline Phosphatase 73 46-116 U/L Total Protein 5.7 5.7-8.2 g/dL Albumin 3.4 3.2-4.8 g/dL Troponin I High Sensitivity < 3 L </=34 ng/L Microbiology Date/Time Source Procedure Growth Status 01/03/25 14:08 Leg Left Gram Stain - Final Complete 01/03/25 14:08 Wound Culture - Final Methicillin Resistant S.aureus Complete Assessment one week of relatively painless swelling of a lesion of postero lateral aspect of left thigh, will ask radiologist to drain fluid for culture Plan discussed with: Patient GUZMAN NOBLE MD Jan 06, 2025 16:36
--- NOTE | 2025-01-06 19:02 | DVHPNRES ---
Progress Note Date Seen: Jan 06, 2025 Resident Creating Document: MARIBEL STANLEY RESIDENT Medical Necessity Reason Pt with a Central, PICC or Fol: No Subjective Review of Systems This is a 59-year-old female with a past medical history of chronic back pain, osteoarthritis and tobacco, marijuana use presents to the emergency department with concerns of a non-healing wound on the left inner thigh, which started after spider bite approximately 1.5 cm, mild purulent discharge, swelling, local raise of temperature tender on deep palpation. The patient states the symptoms began on 12/24/2024 after a presumed spider bite from her garage. She reports that she was hospitalized at [facility] from 12/27/24 - 12/30/24, during which she received IV antibiotic and was discharged on oral antibiotics. Despite this, she states the wound has continued to drain purulent material. She denies fever, chills, chest pain, SOB, dysuria, abdominal pain or systemic symptoms. Past Medical History: chronic back pain, osteoarthritis and tobacco, marijuana use Past Surgical History: x 5 Family History: non-contributory Past Social History Admits to tobacco, marijuana use . Denies ETOH abuse PCP: Health department Home medication: Gabapentin 600 mg, diclofenac gel, oxycodone-acetaminophen 10/325 mg. Patient seen and evaluated in bedside. Patient denies any fever, SOB, abdominal pain chest pain, dysuria. Patient having left thigh pain during ambulation. Surgery consult appreciated. No acute event overnight. Objective vital signs Vital Sign Date Time Temp Pulse Resp B/P (MAP) Pulse Ox O2 Delivery O2 Flow Rate FiO2 01/06/25 16:48 98.1 70 17 144/84 (104) 96 98.1 01/06/25 08:00 Room Air* 0 N/A Nasal Cannula* Total Intake and Output 01/05/25 01/05/25 01/06/25 15:00 23:00 07:00 Intake Total 2020 ml 1858 ml Balance 2020 ml 1858 ml medications Current Medications Medications Dose Ordered Sig/Ej Route Start Time Stop Time Status Last Admin Dose Admin Clindamycin Phosphate 50 ml @ 50 mls/hr Q8HR IV 01/02/25 14:00 01/06/25 14:04 50 MLS/HR Sodium Chloride 1,000 ml @ 60 mls/hr [id number] IV 01/02/25 13:00 01/06/25 17:00 60 MLS/HR Acetaminophen/ Hydrocodone Bitart 1 tab Q4HP PRN PO 01/02/25 13:00 01/06/25 11:25 1 TAB Ondansetron HCl 4 mg Q4HP PRN IV 01/02/25 13:00 Enoxaparin Sodium 40 mg DAILY SC 01/03/25 10:00 01/06/25 09:50 40 MG Acetaminophen 650 mg Q6HP PRN PO 01/02/25 13:00 Nicotine 1 patch DAILY TD 01/03/25 10:00 01/06/25 09:46 1 PATCH Gabapentin 600 mg BID PO 01/03/25 22:00 01/06/25 09:45 600 MG Loratadine 10 mg DAILY PO 01/06/25 10:00 01/06/25 09:45 10 MG Doxycycline Monohydrate 100 mg Q12HR PO 01/06/25 22:00 Examination General Appearance: Not in acute distress HEENT: Normal ENT Inspection, Pharynx Normal, TMs Normal Neck: Full Range of Motion, Non-Tender, Normal, Normal Inspection Respiratory: Chest Non-Tender, Lungs Clear, No Accessory Muscle Use, No Respiratory Distress, Normal Breath Sounds Cardiovascular: No Edema, No JVD, No Murmur, No Gallop, Normal Peripheral Pulses, Regular Rate/Rhythm Gastrointestinal: No Organomegaly, Non Tender, No Pulsatile Mass, Normal Bowel Sounds, Soft Extremities: No calf tenderness, Normal capillary refill, tender and indurated area posterior medial aspect of left thigh Neurologic: Alert, contact and service clerks supervisor II-XII nml as Tested, No Motor Deficits, Normal Affect, Normal Mood, No Sensory Deficits Skin: Dry, Normal Color, Warm, Wounds (Redness of left thigh with swelling) laboratory and microbiology Laboratory Tests 01/06/25 06:00 Test 01/06/25 06:00 Range/Units Serum Glucose 90 74-106 mg/dL Microbiology Date/Time Source Procedure Growth Status 01/03/25 14:08 Leg Left Gram Stain - Final Complete 01/03/25 14:08 Wound Culture - Final Methicillin Resistant S.aureus Complete Problem List/Assessment/Plan Problem List/Assessment/Plan Left thigh cellulitis surrounding ulcer caused by possible spider bite Localized f fluid collection left thigh likely abscess Ultrasound soft tissue left thigh: Moderate diffuse subcutaneous edema with sweet in soft tissue. CT left thigh with contrast shows inflammatory changes in the subcutaneous tissue proximal left thigh and largest collection measures 6.1cm X 5 cm. NSS 60 cc/hour Acetaminophen 650 mg p.o. q.6 p.r.n. Currently under adjusted IV antibiotic (clindamycin) [place] as needed for pain Surgery consult appreciated Daily monitors local inflammation Wound culture 01/03/2025 shows MRSA Contact isolation Normocytic normochromic anemia No active signs/symptoms of bleeding Chronic back pain No history of recent trauma, MVA or fall Continue pain management as indicated Osteoarthritis Continue pain management as indicated Marijuana/Tobacco use disorder Counseled for 15 minutes for marijuana and tobacco use cessation Nicotine patch DVT prophylaxis: Lovenox 40 mg sc daily GI prophylaxis: Not indicated at this time. Goals of care discussed. More than 23 minute spent with patient. full code. Case discussed with Dr. Andersen. Plan discussed with: Patient, Other (Nurse) My Orders My Orders Orders - MARIBEL STANLEY RESIDENT Procedure Category Date Status Time * Surgical Consult CONS 01/05/25 Transmitted Doxycycline Tablet PHA 01/06/25 In Process (Vibramycin Tablet) 22:00 Dietary Evaluation Review Recommendations by RD: Dietary education by RD Comments: 1) Initiate MVI @ 1 tb qd 2) Encourage optimal PO intake 3) Refer to outpatient RD for weight management 4) Continue to monitor I&O, labs, and skin integrity Expected Outcomes/Goals: 1) appetite and labs to improve 2) wound to improve 2) f/u in 3-5 days Date of Service: Jan 06, 2025 Billing Provider: ANGY ANDERSEN MD Common Visit Codes: [id number] INP/OBS CARE(HIGH) MARIBEL STANLEY RESIDENT Jan 06, 2025 19:02 LUNA BALDWIN RESIDENT Jan 07, 2025 02:01 ANGY ANDERSEN MD Jan 14, 2025 21:40
[2025-01-06] MEDS: DOXYCYCLINE 100 MG TAB/CAP PO SCH (23:04)
[2025-01-07 01:00] VITALS: BP 143/87; PULSE 66; RESP 17; TEMP 97.9; O2SAT 96
[2025-01-07 05:00] VITALS: BP 121/88; PULSE 68; RESP 18; TEMP 97.9; O2SAT 93
[2025-01-07 05:55] LABS: Hematocrit 39.6 % (36.0-46.0); Hemoglobin 13.5 g/dL (12.2-16.2); Mean Corpuscular Hemoglobin 31.6 pg (28.0-32.0); Mean Corpuscular Volume 92.3 fL (80.0-100.0); Nucleated Red Blood Cells % 0.1 %
[2025-01-07 06:09] LABS: Calcium 9.2 mg/dL (8.7-10.4); Potassium 4.2 mmol/L (3.5-5.1); Sodium 144 mmol/L (136-145)
[2025-01-07 06:10] LABS: Anion Gap 6 (5-15); Carbon Dioxide 29 mmol/L (20-31)
[2025-01-07 06:15] LABS: BUN/Creatinine Ratio 15.4 (10.0-20.0); Blood Urea Nitrogen 10 mg/dL (9-23); Glucose 81 mg/dL (74-106)
[2025-01-07 06:24] LABS: Chloride 109 mmol/L (98-107)
[2025-01-07] MEDS: ERGOCALCIFEROL 50,000 UNIT(1.25MG) CAP PO SCH (06:57)
[2025-01-07 08:00] VITALS: PULSE 71; RESP 20; O2SAT 97
[2025-01-07 09:00] VITALS: BP 129/87; PULSE 71; RESP 20; TEMP 97.9; O2SAT 97
[2025-01-07 10:39] LABS: INR 0.98 (0.9-1.15); Partial Thromboplastin Time 31.3 SEC (24.5-34.5); Prothrombin Time 10.4 sec (9.3-11.8)
[2025-01-07 13:00] VITALS: BP 137/93; PULSE 72; RESP 20; TEMP 97.7; O2SAT 99
[2025-01-07 17:00] VITALS: BP 134/83; PULSE 71; RESP 20; TEMP 98; O2SAT 96
--- NOTE | 2025-01-07 17:39 | DVHDSRES ---
Discharge Summary Date of Admission Resident Creating Document: MARIBEL STANLEY RESIDENT Jan 02, 2025 at 12:53 Date of Discharge: Jan 07, 2025 Labs/Diagnostic Data: Laboratory Results Test 01/07/25 10:04 01/07/25 05:00 01/04/25 04:45 01/03/25 06:08 Prothrombin Time 10.4 sec (9.3-11.8) Prothrombin Time INR 0.98 (0.9-1.15) Activated Partial Thromboplast Time 31.3 SEC (24.5-34.5) White Blood Count 5.2 10^3/uL (4.4-10.8) Red Blood Count 4.29 10^6/uL (4.0-5.20) Hemoglobin 13.5 g/dL (12.2-16.2) Hematocrit 39.6 % (36.0-46.0) Mean Corpuscular Volume 92.3 fL (80.0-100.0) Mean Corpuscular Hemoglobin 31.6 pg (28.0-32.0) Mean Corpuscular Hemoglobin Concent 34.2 g/dL (32.0-36.0) Red Cell Distribution Width 14.6 % (11.8-14.3) Platelet Count 352 10^3/uL (140-450) Mean Platelet Volume 7.4 fL (6.9-10.8) Neutrophils (%) (Auto) 58.5 % (37.0-80.0) Lymphocytes (%) (Auto) 27.4 % (10.0-50.0) Monocytes (%) (Auto) 10.8 % (0.0-12.0) Eosinophils (%) (Auto) 2.8 % (0.0-7.0) Basophils (%) (Auto) 0.5 % (0.0-2.0) Neutrophils # (Auto) 3.0 10 ^3/uL (1.6-8.6) Lymphocytes # (Auto) 1.4 10 ^3/uL (0.4-5.4) Monocytes # (Auto) 0.6 10 ^3/uL (0-1.3) Eosinophils # (Auto) 0.1 10 ^3/uL (0-0.8) Basophils # (Auto) 0 10 ^3/uL (0-0.2) Nucleated Red Blood Cells 0.1 % Sodium Level 144 mmol/L (136-145) Potassium Level 4.2 mmol/L (3.5-5.1) Chloride Level 109 mmol/L (98-107) Carbon Dioxide Level 29 mmol/L (20-31) Anion Gap 6 (5-15) Blood Urea Nitrogen 10 mg/dL (9-23) Creatinine 0.65 mg/dL (0.550-1.02) Glomerular Filtration Rate Calc 101 mL/min (>90) BUN/Creatinine Ratio 15.4 (10.0-20.0) Serum Glucose 81 mg/dL (74-106) Calcium Level 9.2 mg/dL (8.7-10.4) Vitamin B12 Level 838 pg/mL (211-911) Vitamin D 25-Hydroxy 15.3 ng/mL (30.0-100) Thyroid Stimulating Hormone (TSH) 1.99 uIU/mL (0.55-4.78) Hemoglobin A1c 5.7 % A1C (<5.7) Total Bilirubin 0.2 mg/dL (0.2-1.0) Aspartate Amino Transferase (AST) 19 U/L (13-40) Alanine Aminotransferase (ALT) 17 U/L (7-40) Alkaline Phosphatase 73 U/L (46-116) Total Protein 5.7 g/dL (5.7-8.2) Albumin 3.4 g/dL (3.2-4.8) Test 01/02/25 11:01 Troponin I High Sensitivity < 3 ng/L (</=34) Other Laboratory Tests 01/07/25 05:00 Brief Hx & Hospital Course: This is a 59-year-old female with a past medical history of chronic back pain, osteoarthritis and tobacco, marijuana use presents to the emergency department with concerns of a non-healing wound on the left inner thigh, which started after spider bite approximately 1.5 cm, mild purulent discharge, swelling, local raise of temperature tender on deep palpation. The patient states the symptoms began on 12/24/2024 after a presumed spider bite from her garage. She reports that she was hospitalized at [facility] from 12/27/24 - 12/30/24, during which she received IV antibiotic and was discharged on oral antibiotics. Despite this, she states the wound has continued to drain purulent material. She denies fever, chills, chest pain, SOB, dysuria, abdominal pain or systemic symptoms. Past Medical History: chronic back pain, osteoarthritis and tobacco, marijuana use Past Surgical History: x 5 Family History: non-contributory Past Social History Admits to tobacco, marijuana use . Denies ETOH abuse PCP: [facility] department Home medication: Gabapentin 600 mg, diclofenac gel, oxycodone-acetaminophen 10/325 mg. Hospital course: Patient admitted due to left postero-medial thigh cellulitis. Patient was treated with p.o. antibiotic which not responding, on admission started IV antibiotic and treated conservatively. ultrasound left lower extremity soft tissue- Moderate diffuse subcutaneous edema with trace free fluid in the soft tissues. No organized abscess is identified. CT left lower extremity with contrast shows inflammatory changes in the subcutaneous tissue proximal left thigh, largest collection 6.1 x 5 cm. surgery consulted to rule out fluid collection. due to 1 week of relatively painless swelling lesion recommended IR to drain fluid. as per IR, no procedure indicated at this time due to no fluid seen in the ultrasound images. wound culture and sensitivity showed growth of MRSA. Patient symptoms significantly improved with IV antibiotic which is sensitive to MRSA. Currently patient denies any fever, any active discharge, swelling is decreased in compared to admission, no redness. Patient discharged with clindamycin p.o. antibiotic for 2 weeks. patient will follow-up continuity clinic friday morning, follow-up with primary care within 2 weeks after discharge. Patient is hemodynamically stable for discharge. The patient has received maximum benefits from inpatient treatment. Time was given to answer patient/ parents questions and concerns in Layman terms. patient verbalized understanding and agree with treatment and follow-up. Patient was recommended to return to the ED if she experiences any worsening symptoms such as, but not limited to current symptoms. Continue current home medication. PHYSICAL EXAMINATION: General Appearance: Not in acute distress HEENT: Normal ENT Inspection, Pharynx Normal, TMs Normal Neck: Full Range of Motion, Non-Tender, Normal, Normal Inspection Respiratory: Chest Non-Tender, Lungs Clear, No Accessory Muscle Use, No Respiratory Distress, Normal Breath Sounds Cardiovascular: No Edema, No JVD, No Murmur, No Gallop, Normal Peripheral Pulses, Regular Rate/Rhythm Gastrointestinal: No Organomegaly, Non Tender, No Pulsatile Mass, Normal Bowel Sounds, Soft Extremities: No calf tenderness, Normal capillary refill, posterior medial aspect of left thigh indurated area Neurologic: Alert, double bottom driver II-XII nml as Tested, No Motor Deficits, Normal Affect, Normal Mood, No Sensory Deficits Skin: Dry, Normal Color, Warm, posterior medial aspect of left thigh indurated area with no dischage Operations or Procedures ORDERING PHYSICIAN: MICHELLE SCHWARTZ PROCEDURE(s): LLEXT - LEFT LOWER EXTREMITY ULTRASOUN REASON: patient had spider bite, rule out abcess ORDER NUMBER(s): [id number], ACCESSION NUMBER(s): [id number] EXAM: US LEFT LOWER EXTREMITY ULTRASOUN DATE OF SERVICE: 01/03/2025 11:52 AM ORDERING PHYSICIAN: ANTONIO VEE REASON FOR EXAM: patient had spider bite, rule out abcess TECHNIQUE: Images were acquired through the area of concern in the medial left upper thigh with a high-frequency transducer in sagittal and transverse planes. Video clips were included. Color doppler evaluation of the area of concern was also performed. COMPARISON: None FINDINGS: In the area of concern, there is moderate diffuse subcutaneous edema. There is trace free fluid in the subcutaneous tissues. There is no organized fluid collection. No solid mass is identified. IMPRESSION: Moderate diffuse subcutaneous edema with trace free fluid in the soft tissues. No organized abscess is identified. ATED BY: NARINDER BLAND MD DICTATED DATE/TIME: 01/03/25 1210 ORDERING PHYSICIAN: MARIBEL STANLEY PROCEDURE(s): LE1CR - LT LOWER EXTREMITY W CONTRAS REASON: r/o abscess ORDER NUMBER(s): [id number], ACCESSION NUMBER(s): [id number] INDICATION: r/o abscess COMPARISON: US LEFT LOWER EXTREMITY ULTRASOUN on DOS: 01/03/25 TECHNIQUE: CT of the right was performed without contrast. Volume transverse images were obtained and reconstructed in multiple planes using bone and soft tissue algorithms. CONTRAST: None Radiation Dose Information: CT Dose: CTDI volume is 14.41 mGy. Dose-length product is 841.29 mGy*cm Omnipaque 300: 100 mL FINDINGS: The alignment is normal. The joint spaces are normal. There is no fracture, dislocation, or focal osseous lesions. The soft tissues stranding suggesting edema possible inflammatory changes medial aspect proximal thigh on the left. Measures 9.1 cm in transverse dimension, 16 mm in thickness. Tissue density of the subcutaneous collection is 16 0.29 hounsfield units. May represent seroma or abscess. There are no gas bubbles in the collection. Area involved proximal left thigh extends from 9:00 to 6:00. There is a 2.6 x 3.6 cm subcutaneous collection in the medial soft tissues of the proximal left thigh extending proximally 1.521.7 cm from the left inferior gluteal fold. In the posterior proximal thigh is a 6.1 x 5 cm collection of fluid in the subcutaneous tissues which may represent a focal abscess in the subcutaneous tissues with density of 6.45 Hounsfield units. IMPRESSION: 1. Inflammatory changes in the subcutaneous tissues proximal left thigh proximally 1-2 cm distal to the inferior gluteal fold in the left. 2. Inflammatory changes extend from the 6:00 a.m. of the 9 o'clock position of the left thigh. 3. Largest collection measures 6.1 x 5 cm. 4. Series 604 images 83-[address] scans at this medical facility are performed using dose modulation techniques as appropriate to a performed exam including the following: Automated exposure control was utilized; adjustment of the MA and/or KV according to patient size; and use of iterative reconstruction technique. ATED BY: MAX RODRIGUEZ Jr. DO DICTATED DATE/TIME: 01/05/251818 Condition at Discharge: Stable Final Diagnosis/Problems List Cellulitis posterior medial part left thigh. Localized fluid collection left thigh likely abscess Vitamin D deficiency Normocytic normochromic anemia Chronic back pain Osteoarthritis Marijuana/Tobacco use disorder Obesity Discharge Disposition: Home Discharge Instruct/Medications Diet: Consistent carbohydrate Diet comment: Follow-up with primary care within a week after discharge Follow-up with continuity clinic Friday morning 1 week after discharge. Activity: No Restrictions, As Tolerated Follow Up/Referral: Follow-up with primary care within 2 weeks after discharge Follow-up with outpatient Friday morning 1 week after discharge Scheduled Clindamycin Hcl (Clindamycin Hcl), 1 CAP PO TID Ergocalciferol (Vitamin D 10206 Unit), 50,000 UNIT PO Q7D Loratadine (Claritin Tablet), 10 MG PO DAILY Nicotine (Nicoderm 21MG/24HR), 1 PATCH TOP DAILY Scheduled PRN Acetaminophen (Acetaminophen), 650 MG PO Q6HP PRN Gabapentin (Gabapentin), 1 TAB PO QIDP PRN, (Reported) Discharge Statement: "Patient was advised to return to the ER or call 911 if any headaches, dizziness, shortness of breath, chest pain, abdominal pain, bleeding, fevers, or worsening of medical condition. Patient was counseled about treatment plan, medications, possible side effects, patientverbalized understanding. All questions were answered to the best of my ability. This discharge took greater then 30 minutes in planning, reviewing documentation, counseling the patient, and discussing with other team members." ASSESSMENT ASSESSMENT Assessment Cellulitis posterior medial part left thigh. Date of Service: Jan 07, 2025 Billing Provider: ANGY ANDERSEN MD Common Visit Codes: 55101-XFV/OBS DISCH DAY >30min MARIBEL STANLEY RESIDENT Jan 07, 2025 17:39 ANGY ANDERSEN MD Jan 07, 2025 21:46
[2025-01-07] MEDS ORDERED: ACET-1882 PO (18:05)
[2025-01-07] MEDS ORDERED: NIC21P TOP (18:05)
[2025-01-07] MEDS ORDERED: LORA-483 PO (18:05)
[2025-01-07] MEDS ORDERED: ERGO1CAP23 PO (18:05)
[2025-01-07] MEDS ORDERED: CLIN1CAP70 PO (18:05)
== END 2025-01-07 19:23 | disposition home or self-care (01) | DRG 603 ==
LOC: ER 09:18 → OVERFLOW 12:53 → WEST WING 23:22 → EAST 01-06 20:12
PROVIDERS: ADMIT Student in an Organized Health Care Education/Training Program; ATTEND Emergency Medicine
DX: L03.116 Cellulitis of left lower limb (principal); L02.416 Cutaneous abscess of left lower limb; D64.9 Anemia, unspecified; E66.9 Obesity, unspecified; S70.362A Insect bite (nonvenomous), left thigh, initial encounter; G89.4 Chronic pain syndrome; Z68.28 Body mass index [BMI] 28.0-28.9, adult; E55.9 Vitamin D deficiency, unspecified; F12.90 Cannabis use, unspecified, uncomplicated; B95.62 Methicillin resistant Staphylococcus aureus infection as the cause of diseases classified elsewhere; M19.09 Primary osteoarthritis, other specified site; Z71.6 Tobacco abuse counseling; Z72.0 Tobacco use; W57.XXXA Bitten or stung by nonvenomous insect and other nonvenomous arthropods, initial encounter; Y99.8 Other external cause status; Y92.015 Private garage of single-family (private) house as the place of occurrence of the external cause; Y93.89 Activity, other specified
CPT/HCPCS: 36415; 73701; 80048; 80053; 82306; 82607; 83036; 84443; 84484; 85025; 85610; 85730; 87077; 87081; 87186; 93926; 96365; G0378; J2543; J3490